=== PATIENT | female | born 1995 | race Caucasian/White ===

== ENCOUNTER 2019-08-20 22:30 | Inpatient (IN) | payer OTHER ==
[2019-08-20 23:16] VITALS: BMI 31.6
[2019-08-20] MEDS ORDERED: Promethazine HCl 25 MG/ML VIAL IM PRN (23:22)
[2019-08-20] MEDS ORDERED: Lidocaine 1% (PF) 30 ML VIAL SC PRN (23:22)
[2019-08-20] MEDS ORDERED: Ondansetron PF 4 MG/2 ML Vial IVP PRN (23:22)
[2019-08-20] MEDS ORDERED: Butorphanol Tartrate 1 MG/ML VIAL SLOW IVP PRN (23:22)
[2019-08-20] MEDS ORDERED: hydrALAZINE 20 MG/ML VIAL SLOW IVP PRN (23:22)
[2019-08-20] MEDS ORDERED: NS / Oxytocin 40 units/1000ml 1,000 ML IV PRN (23:22)
--- NOTE | 2019-08-20 23:24 | PDOC.EVN ---
Event Note - Event Note Event Note: Direct admit to private MD DX SROM, labor Orders placed
[2019-08-20] MEDS: Lactated Ringer's 1,000 ML IV SCH (23:35)
[2019-08-20 23:50] LABS: Hemoglobin 11.8 g/dL (12.0-16.0); Mean Corpuscular HGB CONC 34.1 g/dL (32.0-36.0); Mean Corpuscular Hemoglobin 29.2 pg (27.0-31.0); Mean Corpuscular Volume 85.7 fL (78.0-98.0); Mean Platelet Volume 9.4 fL (7.4-10.4); Platelet Count 275 thou/uL (130-400); RBC Distribution Width 15.5 % (11.5-14.5); Red Blood Cell (RBC) Count 4.05 mill/uL (4.20-5.40); White Blood Cell (WBC) Count 13.7 thou/uL (4.8-10.8)
[2019-08-21 00:29] LABS: HBSAg Index 0.22 S/CO (0-0.99); HIV (1/2) Antibody/Antigen Non-Reactive (NonReactive); HIV 1/2 INDEX 0.11 S/CO (<1.00); Hep B Surf Ag Non-Reactive S/CO (NonReactive); Syphilis Antibody Nonreactive (Nonreactive); Syphilis Antibody Index 0.06 S/CO (<1.00 Non-Reactive)
[2019-08-21] MEDS: Lactated Ringer's 1,000 ML IV SCH (02:12)
--- NOTE | 2019-08-21 08:39 | PDOC.LDHP ---
Labor and Delivery H&P Chief complaint: contractions, loss of fluid HPI: 24yo at 38w by LMP for painful ctx and SROM at 2200 08/20. Current gestational age (weeks): 38 Due date: 08/30/19 Dating criteria: first trimester ultrasound Grav: 2 Para: 1 Current complications: none Abnormal US findings: No Past Medical History: denies Current medications: pre-vale vitamins, iron Previous surgical history: none Allergies/Adverse Reactions: Allergies Allergy/AdvReac Type Severity Reaction Status Date / Time No Known Allergies Allergy Verified 08/20/19 23:14 Social history: none - Physical Exam Vital signs reviewed and normal: yes General: NAD Heart: RRR Lungs: CTAB Abdomen: gravid Extremeties: no edema FHT: category 1 Selz contractions every: 4min - Vaginal Exam cm dilated: 10 Effacement: 100% Station: 3+ - OB Labs Blood type: O RH: positive Antibody Screen: negative HIV: negative RPR: negative HEPSAg: negative 1 hour GCT: negative GBS: negative Urine drug screen: negative Rubella: immune - Assessment L&D Assessment: term patient in labor - Plan Plan: admit to L&D, labor augmentation if indicated, informed consent obtained, anesthesia consult for pain management
--- NOTE | 2019-08-21 08:40 | PDOC.OPDEL ---
OB Operative/Delivery Note Delivery Dr/Surgeon: Federico Assist: n/a Pre-Delivery Diagnosis: active labor Procedure/Post Delivery Dx: spontaneous vaginal delivery Weeks gestation: 38 Anesthesia: local - Findings A Sex: male - 1 min: 8 - 5 min: 9 - Additional Findings/Plan Placenta delivered: spontaneous Repaired Obstetrical Laceration: 1st degree Estimated blood loss: 300 Compilations/Other Findings: tight NC x 2 reduced at perineum Post delivery plan: routine recovery
[2019-08-21] MEDS ORDERED: Lanolin Ointment 7 GM TUBE TOP PRN (09:08)
[2019-08-21] MEDS ORDERED: hydrALAZINE 20 MG/ML VIAL SLOW IVP PRN (09:08)
[2019-08-21] MEDS ORDERED: diphenhydrAMINE 25 MG CAP PO PRN (09:08)
[2019-08-21] MEDS ORDERED: NS / Oxytocin 40 units/1000ml 1,000 ML IV SCH (09:08)
[2019-08-21] MEDS ORDERED: Milk Of Magnesia 30 ML UDCUP PO PRN (09:08)
[2019-08-21] MEDS ORDERED: Adacel (T-DAP) 0.5 ML SYRINGE IM ONE (09:08)
[2019-08-21] MEDS ORDERED: HYDROcodone/Acetaminophen 5/325 mg Tablet PO PRN ×2 (09:08)
[2019-08-21] MEDS ORDERED: Preparation H Ointment 28 GM TUBE PR PRN (09:08)
[2019-08-21] MEDS ORDERED: Ondansetron PF 4 MG/2 ML Vial IVP PRN (09:08)
[2019-08-21] MEDS ORDERED: Bisacodyl 10 MG SUPP PR PRN (09:08)
[2019-08-21] MEDS ORDERED: Benzocaine-Menthol 82.5 ML CAN TOP PRN (09:08)
[2019-08-21] MEDS: Ibuprofen 800 MG TAB PO SCH ×2 (09:46→17:38)
[2019-08-21] MEDS ORDERED: Docusate Calcium (SURFAK) 240 MG CAP PO SCH (10:00)
[2019-08-21] MEDS ORDERED: Prenatal Vitamin 1 TAB PO SCH (10:00)
[2019-08-21] MEDS: Ferrous Sulfate 325 MG TAB PO SCH (16:03)
[2019-08-21] MEDS: Docusate Calcium (SURFAK) 240 MG CAP PO SCH (22:03)
[2019-08-22] MEDS: Ibuprofen 800 MG TAB PO SCH ×2 (02:17→10:31)
--- NOTE | 2019-08-22 06:46 | PDOC.PP ---
Post Progress Note Post Day #: 1 PO intake tolerated: yes Flatus: yes Ambulation: yes Vital Signs (12 hours) Temp Pulse Resp BP Pulse Ox 08/22/19 04:50 98.1 F 79 104/54 L 08/22/19 01:00 98.1 F 90 114/59 L 08/21/19 19:45 98.5 F 96 16 113/56 L 96 Weight Weight 184 lb - Physical Examination General: NAD Respiratory: non-labored breathing Abdominal: no distention, appropriately TTP Fundus firm & at: umb Skin: no rash Neurological: no gross focal deficits Psychiatric: normal affect Result Diagrams: 08/20/19 23:41 Additional Labs: Post Labs Blood Type O POSITIVE 08/21/19 01:19 Hep Bs Antigen Non-Reactive S/CO (NonReactive) 08/20/19 23:41 - Assessment/Plan PPD1 s/p TSVD VSSAF Doing well lochia < menses Rh pos RImm DC home FU 6w
[2019-08-22 08:17] VITALS: BP 100/53; TEMP 98.5
[2019-08-22] MEDS: Ferrous Sulfate 325 MG TAB PO SCH ×2 (08:26→17:19)
[2019-08-22] MEDS ORDERED: Prenatal Vitamin 1 TAB PO SCH (09:00)
[2019-08-22] MEDS: Docusate Calcium (SURFAK) 240 MG CAP PO SCH (09:13)
== END 2019-08-22 17:45 | disposition home or self-care (01) | DRG 807 ==
LOC: L&D/OP 22:30 → L&D 23:39 → 3SW 08-21 14:36
PROVIDERS: ADMIT Student in an Organized Health Care Education/Training Program; ATTEND Student in an Organized Health Care Education/Training Program
PROC: 10E0XZZ Delivery of Products of Conception, External Approach (ICD-10-PCS; principal; 2019-08-20)
PROC: 0HQ9XZZ Repair Perineum Skin, External Approach (ICD-10-PCS; 2019-08-20)
DX: O69.1XX0 Labor and delivery complicated by cord around neck, with compression, not applicable or unspecified (principal); Z37.0 Single live birth; O70.0 First degree perineal laceration during delivery; Z3A.38 38 weeks gestation of pregnancy
CPT/HCPCS: 36415; 85027; 86780; 86850; 86900; 86901; 87340; 87389; 99285; J0595; J2001; J2405